=== PATIENT | male | born 1950 | race Native Hawaiian/Other Pacific Islander ===

== ENCOUNTER 2020-10-10 10:55 | Outpatient (CLI) | payer OTHER | END 2020-10-10 21:49 | disposition home or self-care (01) | LOC: INF 10:55 | PROVIDERS: ATTEND Internal Medicine Endocrinology, Diabetes & Metabolism | DX: Z23 Encounter for immunization (principal) | CPT/HCPCS: 96372 ==

== ENCOUNTER 2020-11-07 09:51 | Outpatient (CLI) | payer OTHER | END 2020-11-07 23:03 | disposition home or self-care (01) | LOC: INF 09:51 | PROVIDERS: ATTEND Internal Medicine Endocrinology, Diabetes & Metabolism | DX: Z23 Encounter for immunization (principal) | CPT/HCPCS: 96372 ==